=== PATIENT | male | born 1990 | race American Indian/Alaskan Native ===

== ENCOUNTER 2017-11-15 06:03 | Emergency (ER) | payer SELFPAY ==
[2017-11-15 06:35] VITALS: BP 143/89
[2017-11-15] MEDS ORDERED: XYLOCAINE 1% 20 mL INFILTRATI ONE (08:04)
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
[2017-11-15] MEDS ORDERED: BOOSTRIX IM ONE (09:05)
== END 2017-11-15 09:12 | disposition home or self-care (01) ==
LOC: ED 06:03
DX: S01.511A Laceration without foreign body of lip, initial encounter (principal); F17.200 Nicotine dependence, unspecified, uncomplicated; Y04.8XXA Assault by other bodily force, initial encounter; Y93.89 Activity, other specified; Y92.89 Other specified places as the place of occurrence of the external cause; Y99.8 Other external cause status
CPT/HCPCS: 90471; 90715; 99282